=== PATIENT | female | born 2005 | race Caucasian/White ===

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

== ENCOUNTER 2023-10-15 06:30 | Emergency (ER) | payer BC, MEDICAID, SELFPAY ==
[2023-10-15 06:32] VITALS: BP 102/39; PULSE 90; RESP 16; TEMP 37.1; O2SAT 96; BMI 20.9
[2023-10-15 07:29] LABS: Influenza A by IFA negative (Negative); Influenza B by IFA negative (Negative)
[2023-10-15 07:36] LABS: SARS Covid-2 Antigen positive (Negative)
--- NOTE | 2023-10-15 07:41 | ED_ITS ---
HPI - Nausea/Vomiting/Diarrhea General: Chief complaint: Nausea/Vomiting/Diarrhea Stated complaint: Fever, Body aches, N/V Time Seen by Provider: 10/15/23 06:32 History of Present Illness: Patient presents to the ER complaining of nausea vomiting fever chills body aches since yesterday about 9 PM. But she was unable to sleep all night because of chills and bodyaches. She took Tylenol at home for fever. Upon arrival here her temperature is 98.8. She does state her aunt recently saw her PCP and believes she was sick with the flu. Review of Systems General: Reports: 10 or more systems reviewed and unremarkable except in HPI and below PFSH ED PFSH: Medical History No pertinent past medical history neghx: htn,dm,thyroid,dvt/pe PCP: Markie Garcia Asthma Surgical History History of oral surgery at age 11 Family History Grandfather Hypertension Paternal Heart disease Paternal Diabetes Paternal Cancer Paternal--throat Mother Breast cancer dx age 38 Denies family history of Colon cancer Ovarian cancer Hypercholesteremia Uterine cancer Thyroid disease Stroke Social History Smoking and tobacco/nicotine status: current every day tobacco/nicotine user e- cigarettes E-Cigarette Details: vaporizer device and with nicotine Alcohol intake: current Substance/Drug Use: never Adopted: No Caregiver/support person: No Lives independently: No Household members: family service: No Current occupational status: unemployed Sexually active: Yes Do you think of yourself as: Straight/Heterosexual Current gender identity: Female Physical Exam Const: COMMON NORMALS: no acute distress, average body habitus, patient oriented x3, no limitations, healthy appearing, alert and well nourished HENMT: COMMON NORMALS: normocephalic, atraumatic, hearing grossly normal bilaterally, external ears normal, Normal external nose present, moist oral mucous membranes and oropharynx normal HEAD & SCALP: normocephalic and atraumatic NOSE: Normal external nose present EXTERNAL EAR: Yes external ears normal Neck/C-Spine: COMMON NORMALS: no JVD Chest: COMMONS NORMALS: normal inspection of the chest and normal palpation of entire chest wall Resp: COMMON NORMALS: normal respiratory effort, No retractions, No use of accessory muscles and clear to auscultation bilaterally AUSCULTATION: clear to auscultation bilaterally Cardio: COMMON NORMALS: no JVD, regular rate, regular rhythm, S1 normal heart sound present, S2 normal heart sound present, No gallops present (Cardio), No clicks present (Cardio), No murmurs present (Cardio) and No rub (Cardio) RAT E: regular rate RHYTHM: regular rhythm HEART SOUNDS: S1 normal heart sound present and S2 normal heart sound present GI: COMMON NORMALS: Normal to inspection, nondistended, normoactive bowel sounds present, Soft to palpation, non-tender, No hepatosplenomegaly present and no masses PALPATION: Yes Soft to palpation and Yes No hepatosplenomegaly present Neuro: COMMON NORMALS: patient oriented x3 SENSORIUM/ORIENTATION: Yes alert Course Vital Signs: Vital signs: Vital Signs Temperature 98.8 F 10/15/23 06:32 Pulse Rate 90 10/15/23 06:32 Respiratory Rate 16 10/15/23 06:32 Blood Pressure 102/39 10/15/23 06:32 Pulse Oximetry 96 10/15/23 06:32 Oxygen Delivery Me thod Room Air 10/15/23 06:32 MDM - Nausea/Vomiting/Diarrhea Medical Decision Making Patient had flulike symptoms we did a flu and COVID swab patient was positive for COVID. Patient should follow-up with her PCP next 7 to 10 days for further evaluation and treatment as needed. Differential Diagnosis Unlikely traveler's diarrhea, food poisoning, gastroenteritis, clostridium difficile infection, drug-induced nausea and vomiting or dehydration Medical Records I reviewed the patient's medical records. Lab Data I reviewed the patient's lab results. Laboratory Results Influenza Type A Ag negative (Negative) 10/15/23 06:50 Influenza Type B Ag negative (Negative) 10/15/23 06:50 SARS-CoV-2 Ag (Rapid) positive (Negative) H 10/15/23 06:50 No radiology studies performed this visit Discharge Plan Discharge Patient Disposition: Home Clinical Impression: COVID Condition: Stable Prescriptions: No Action Kyleena 17.5 mcg/24 hrs (5 yrs) 19.5 mg intrauterine device 1 device INTRAUTERI .continuous acyclovir 800 mg tablet 800 mg PO BID PRN (Reason: cold sores) Qty: 60 1RF amitriptyline 10 mg tablet 10 mg PO DAILY Qty: 30 0RF sumatriptan succinate [Imitrex] 50 mg tablet See Rx Instructions PO .COMPLEX Qty: 10 0RF Rx Instructions: take 1 tab at onset of headache; if no relief may repeat 1 tab after at least 2 hrs; max = 4 tabs/24 hr PO fluoxetine 40 mg capsule 40 mg PO QAM Qty: 30 2RF trazodone 50 mg tablet 100 mg PO .HS Qty: 60 2RF Discharge Orders: Discharge ED (Routine); Ordered 10/15/23 Ordered By: Josias Henderson Referrals: Floresita Garcia FNP [Primary Care Provider] - 1 week Patient Instructions: COVID-19 (Coronavirus Disease 2019) (ED) Activity Restrictions/Additional Instructions: please follow-up with your family physician within the next 7 to 10 days for further evaluation and treatment as needed. Coding Level of Care Code ED [employer] Re[employer] Technician for Jayne Castro
== END 2023-10-15 08:10 | disposition home or self-care (01) ==
PROVIDERS: Emergency Provider Emergency Medicine; PCP Registered Nurse
DX: U07.1 COVID-19 (principal); F17.290 Nicotine dependence, other tobacco product, uncomplicated
CPT/HCPCS: 87426; 87804; 99283